=== PATIENT | male | born 1995 | race Caucasian/White ===

== ENCOUNTER 2016-09-09 08:34 | Emergency (ER) | payer BC ==
[2016-09-09] MEDS ORDERED: ORPHENADRINE CITRATE 30 MG/ML VIAL IM ONE (09:07)
[2016-09-09] MEDS ORDERED: KETOROLAC TROMETHAMINE 30 MG/ML VIAL IM ONE (09:07)
[2016-09-09] MEDS ORDERED: ORPHENADRINE CITRATE 30 MG/ML VIAL ONE (09:08)
[2016-09-09] MEDS ORDERED: KETOROLAC TROMETHAMINE 30 MG/ML VIAL ONE (09:08)
--- OUTSIDE RECORDS SUMMARY | 2016-09-09 09:44 | XMS REPORT | Continuity of Care Document ---
:1995 Author Organization [facility] [place] [address] Care Team Providers Name Role Phone Unavailable Primary Care Provider Unavailable Source Comments This disclosure is being made pursuant to the Teleborder program and maynot contain all information available regarding this patient.[facility] Active Allergies and Adverse Reactions Not on File Current Medications Be aware that medications may not be up to date as of this document. Alwaysverify current medications with the patient. Not on file Active Problems Not on file Social History Tobacco Use Types Packs/Day Years Used Date Never Assessed Plan of Care Health Maintenance Due Date Last Done Comments HPV Vaccine (9-26YO) (1 of 3 - Male 3 Dose Series) 2005 Tetanus/Pertussis (1 - Tdap) 2013 Retired-INFLUENZA VACCINE 11/29/2015 Results from Last 3 Months Not on file
--- OUTSIDE RECORDS SUMMARY | 2016-09-09 09:44 | XMS REPORT | Continuity of Care Document ---
:1995 Author Organization [facility] ([facility]) [place] [address] Phone [phone] Care Team Providers Name Role Phone Pilar Caceres Primary Care Provider [phone] Source Comments This disclosure is being made pursuant to the Care Everywhere program, applicable federal and state laws, and may not contain all informaitonavailable regarding this patient.[facility] ([facility]) Active Allergies and Adverse Reactions Not on File Current Medications Not on file Active Problems Not on file Immunizations Name Dates Previously Given Next Due Hepatitis B, unspecified 1995 Social History Tobacco Use Types Packs/Day Years Used Date Never Assessed Plan of Care Health Maintenance Due Date Last Done Comments Hepatitis B Vaccine (2 of 3 - Primary Series) 1994 1994 HPV Vaccine (1 of 3 - Male 3 Dose Series) 2005 Tdap Vaccine 2005 Meningococcal Vaccine (1 of 1) 2010 Lipid Disorder Screening 2012 MMR Vaccine 2012 Td Vaccine 2012 Varicella Vaccine (1 of 2 - Adult - No Evidence of 2012 Immunity) Influenza Vaccine: Seasonal (#1) 10/29/2015 Results from Last 3 Months Not on file
--- NOTE | 2016-09-09 10:20 | ERNOTE ---
Upper Extremity HPI - Narrative Date of Service: 09/09/16 - General Extremities Pain Location: shoulder: left Time Seen by Provider: 09/09/16 09:03 Source: patient Exam Limitations: no limitations - Immun/Allergies/Home Medications Immunizations: IMMUNIZATION HX Immunizations Up to Date Yes History of Influenza Vaccine No Hx Pneumococcal Vaccination No Allergies/Adverse Reactions: Allergies Allergy/AdvReac Type Severity Reaction Status Date / Time No Known Allergies Allergy Verified 09/09/16 08:58 Home Medications: HOME MEDICATIONS Cyclobenzaprine HCl [Flexeril] 10 mg PO TID PRN #20 tab 09/09/16 [Last Taken Unknown] - History of Present Illness Narrative: Patient presents to the ED for left shoulder pain. 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 This pain ahas continued today. Worse with movement and palpation. Pain can be severe. Has had pain here before but not this bad. He feels like he injured it yesterday. No fever. No CP or SOB. No abdominal pain. No focal N/T/W. Has not seen anyone else for this. Occurred: yesterday Location of Incident: work Severity: severe Method of Injury: Reports: other - lifting Loss of Consciousness: Reports: no loss of consciousness Modifying Factors - (Improves): Reports: rest Modifying Factors - (Worsens): Reports: movement Associated Symptoms: Denies: tingling, weakness, numbness distally Other Injuries: Reports: none Prior Treament: Denies: recently seen Review of Systems - Review of Systems Constitutional: Absent: fever Respiratory: Absent: shortness of breath Cardiology: Absent: chest pain Gastrointestinal/Abdominal: Absent: abdominal pain Skin: Absent: rash - Patient's Past Medical History Patient History - Medical: No pertinent hx Patient History - Cardiac/Respiratory: No pertinent hx Patient History - Cancer: No Hx of Cancer Patient History - Surgical Procedures: No surgical history Patient History - Other: None - Social History Living Situations: home Psych History: No pertinent hx Smoking Status: Never smoker Alcohol Use: rarely Drug Use: none - Immunizations Immunizations Up to Date: Yes Hx Pneumococcal Vaccination: No History of Influenza Vaccine: No Physical Exam - Physical Exam General Appearance: Present: alert, no apparent distress Eye Exam: Normal inspection: bilateral, PERRL: bilateral Ears, Nose, Throat: Present: normal ENT inspection Neck: Present: normal inspection Respiratory: Present: no respiratory distress, normal breath sounds, no accessory muscle use, lungs clear Cardiovascular/Chest: Present: regular rate, rhythm, normal peripheral pulses Gastrointestinal/Abdominal: Present: normal bowel sounds, nontender, soft Back Exam: Present: normal inspection, normal range of motion, no vertebral tenderness Extremity Exam: Present: normal inspection, other - There is no actual shoulder tenderness. Full ROM. Nothing to suggest septic arthritis or AC tenderness. THere is left scapular tendenress over the rhombiods. There are point tender in the muscles. He has severe point tendenress here and palpation of the musculature completely reproduces his pain. No neuro vascualr deficits. 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 Absent: motor weakness Skin Exam: Present: normal color, warm/dry. Absent: skin rash ED Progress - Vital Signs Patient's Vital Signs:: I have reviewed the patient's vital signs. Vital Signs: Vital Signs 09/09/16 09/09/16 09/09/16 08:50 08:52 09:21 Temperature 37 C Pulse Rate 72 76 69 Respiratory 12 Rate Blood Pressure 120/62 143/79 119/80 O2 Sat by Pulse 99 100 99 Oximetry 09/09/16 09:40 Temperature Pulse Rate 65 Respiratory Rate Blood Pressure 116/78 O2 Sat by Pulse 99 Oximetry - X-Ray X-Ray #1 X-Ray: shoulder Interpretation: Interp. by me X-ray Comments: No acute Fx. No AC tenderness clinically X-Ray #2 X-Ray: chest Interpretation: Interp. by me X-ray Comments: NAPP. Ireviewed official report - Progress/Reassessment Chief Complaint: Shoulder Injury/Pain Progress Note-Subjective: 09/09/16 10:17 Patient has muscular pain by Hx and clinical exam. No acute bone abnormalities. Nothing to suggest septic process. 09/09/16 10:20 No neuro/vascular deficits Departure Clinical Impression: Musculoskeletal pain - Departure Condition: Stable Instructions: Musculoskeletal Pain Additional Instructions: Rest. Ice. Elevation. Fluids. No driving with medications. Ibuprofen. Return for increased pain, numbness, tingling, weakness or if your condition worsens or changes in any way. Prescriptions: Cyclobenzaprine HCl [Flexeril] 10 mg PO TID PRN #20 tab PRN Reason: MUSCLE SPASMS
[2016-09-09 10:27] VITALS: BP 120/68
== END 2016-09-09 10:30 | disposition home or self-care (01) ==
LOC: ER 08:34
DX: M25.512 Pain in left shoulder (principal); X50.0XXA Overexertion from strenuous movement or load, initial encounter; Y93.H3 Activity, building and construction; Y92.9 Unspecified place or not applicable; Y99.0 Civilian activity done for income or pay